=== PATIENT | female | born 1950 | race Caucasian/White ===

== ENCOUNTER → 2017-09-23 | Outpatient (REF) | payer MEDICARE ==
[2017-09-23 17:45] LABS: FERRITIN 8 NG/ML (8-252); PERCENT SATURATION 22.4 % (13.2-45.0); TOTAL IRON BINDING CAPACITY 370 UG/DL (250-450)
[2017-09-23 17:47] LABS: VITAMIN B12 LEVEL 624 PG/ML
[2017-09-23 17:48] LABS: FOLATE > 24.0 NG/ML
== END ==
LOC: M LAB REF 16:50
PROVIDERS: ATTEND Internal Medicine
DX: D64.9 Anemia, unspecified (principal)

== ENCOUNTER → 2017-10-31 | Outpatient (REF) | payer MEDICARE ==
[2017-10-31 21:54] LABS: FERRITIN 5 NG/ML (8-252); IRON (FE) 34 UG/DL (50-170); PERCENT SATURATION 8.4 % (13.2-45.0); TOTAL IRON BINDING CAPACITY 405 UG/DL (250-450)
== END ==
LOC: M LAB REF 17:58
DX: D50.9 Iron deficiency anemia, unspecified (principal)
CPT/HCPCS: 83550

== ENCOUNTER 2018-02-13 06:56 | Day surgery (SDC) | payer MEDICARE ==
[2018-02-13] MEDS: NS 1,000 ML IV (07:00)
[2018-02-13] MEDS ORDERED: LIDOCAINE 2% INJ 100 MG/5 ML SDV (FOR ANES.) As Ordered (07:51)
[2018-02-13] MEDS ORDERED: PROPOFOL 200 MG/20 ML VIAL As Ordered ×3 (07:51→08:20)
== END 2018-02-13 09:05 | disposition home or self-care (01) ==
LOC: M OPP 06:56
DX: K64.0 First degree hemorrhoids (principal); K22.8 Other specified diseases of esophagus; D50.9 Iron deficiency anemia, unspecified; M12.9 Arthropathy, unspecified; E55.9 Vitamin D deficiency, unspecified; Z79.899 Other long term (current) drug therapy; Z90.710 Acquired absence of both cervix and uterus; Z78.0 Asymptomatic menopausal state; Z98.51 Tubal ligation status
CPT/HCPCS: 45378

== ENCOUNTER → 2021-07-31 | Outpatient (CLI) | payer MEDICARE ==
[~2021-07-31] MED LIST: IRON50TA PO; PANT20TA6 PO
--- NOTE | 2021-07-31 08:54 | REPMRS ---
Patient History The patient states she had a clinical breast exam in November 2020. Patient is postmenopausal. No known family history of cancer. Took estrogen for 1 year. Pfizer vaccine 10/29/20 left arm. 11/19/20 left arm. Patient states no breast complaints today. Patient has signed MRS History Sheet. Digital Woman Screen Mammo: July 31, 2021 - Exam #: [id number] Bilateral CC and MLO view(s) were taken. Technologist: RT Rigoberto Prior study comparison: July 04, 2020, bilateral digital mammo screening bilat, performed at [facility]. June 06, 2019, bilateral digital mammo screening bilat, performed at [facility]. June 01, 2018, bilateral digital mammo screening bilat, performed at [facility]. FINDINGS: There are scattered fibroglandular densities. The Volpara volumetric breast density category is:B. There has been no change in the appearance of the mammogram from the prior studies. There is a mild amount of scattered fibroglandular density which is fairly symmetric. There is no interval development of dominant mass, architectural distortion, or grouped microcalcification suggestive of malignancy. 3-D tomosynthesis shows no additional findings. Assessment: BI-RADS/ACR category 1 mammogram. Negative Mammogram. Recommendation Routine screening mammogram of both breasts in 1 year (for women over age 40). This patient's [facility] Lifetime Breast Cancer Risk is estimated at 3.1 %. This mammogram was interpreted with the aid of an FDA-approved computer-aided dectection system. Electronically Signed By: Thanh Mathew MD 07/31/21 [id number]
== END ==
LOC: M WHC 07:47
PROVIDERS: ATTEND Internal Medicine
DX: Z12.31 Encounter for screening mammogram for malignant neoplasm of breast (principal)

== ENCOUNTER → 2021-10-09 | Outpatient (CLI) | payer MEDICARE | LOC: M RAD 10:06 | PROVIDERS: ATTEND Physician Assistant | DX: M25.561 Pain in right knee (principal); M17.11 Unilateral primary osteoarthritis, right knee; M85.861 Other specified disorders of bone density and structure, right lower leg ==

== ENCOUNTER → 2021-12-25 | Outpatient (CLI) | payer MEDICARE | LOC: M WHC 08:39 | PROVIDERS: ATTEND Internal Medicine | DX: M85.851 Other specified disorders of bone density and structure, right thigh (principal); M85.852 Other specified disorders of bone density and structure, left thigh ==

== ENCOUNTER → 2022-07-28 | Outpatient (CLI) | payer MEDICARE | LOC: M WHC 09:23 | PROVIDERS: ATTEND Internal Medicine | DX: Z12.31 Encounter for screening mammogram for malignant neoplasm of breast (principal) ==

== ENCOUNTER → 2022-12-14 | Outpatient (REF) | payer MEDICARE ==
[2022-12-14 12:55] LABS: APPEARANCE, URINE HAZY (CLEAR); BACTERIA, URINE AUTO 1+ (NEGATIVE); BILIRUBIN, URINE AUTO NEGATIVE (NEGATIVE); BLOOD, URINE BLOOD NEGATIVE (NEGATIVE); COLOR, URINE YELLOW (YELLOW); GLUCOSE, URINE (UA) AUTO NEGATIVE (NEGATIVE); KETONE, URINE AUTO TRACE mg/dL (NEGATIVE); LEUKOCYTE ESTERASE, URINE AUTO 2+ (NEGATIVE); MUCUS, URINE SMALL (NEGATIVE); NITRITE, URINE AUTO NEGATIVE (NEGATIVE); PROTEIN, URINE AUTO NEGATIVE (NEGATIVE); RBC, URINE AUTO 0 /HPF (0-3); SPECIFIC GRAVITY URINE AUTO 1.017 (1.002-1.035); SQUAMOUS EPITHELIAL CELL UR AU 3 /HPF (0-6); UROBILINOGEN, URINE AUTO 0.2 mg/dL (0.0-2.0); WBC, URINE AUTO 30 /HPF (0-3)
== END ==
LOC: M LAB REF 12:36
PROVIDERS: ATTEND Internal Medicine
DX: R31.9 Hematuria, unspecified (principal)

== ENCOUNTER → 2023-08-05 | Outpatient (CLI) | payer MEDICARE | LOC: M WHC 08:11 | PROVIDERS: ATTEND Internal Medicine | DX: Z12.31 Encounter for screening mammogram for malignant neoplasm of breast (principal) ==

== ENCOUNTER → 2023-11-30 | Day surgery (SDC) | payer MEDICARE ==
[~2023-11-30] VITALS: Ht 162.6 cm; Wt 92.0 kg
[~2023-11-30] MED LIST changes: +CALC600T61 PO; +MIDAZOLAM INJ 2MG/2ML VIAL As Ordered ONE; +NOXI1TAB PO; +PHENYLEPHRINE 10% OPHTH SOL 5ML OD PRN; +THERTAB52 PO; +fentaNYL 100 MCG/2 ML INJECTION As Ordered ONE
[2023-11-30] MEDS: TROPICAMIDE 1% OPHTH SOLN 15ML OD SCH (08:34)
[2023-11-30] MEDS: PHENYLEPHRINE 2.5% OPHTH SOL 2ML OD SCH (08:34)
[2023-11-30] MEDS: LIDOCAINE 3.5 % 1ML OPHTH TOPICAL GEL OU ONE (08:34)
[2023-11-30] MEDS: OFLOXACIN 0.3 % (OCUFLOX) OPTH SOL 5ML OD ONE (08:34)
[2023-11-30] MEDS: CYCLOPENTOLATE 1% OPHTH SOLN 2ML BTL OD SCH (08:34)
[2023-11-30] MEDS: LIDOCAINE 1% SDV 5ML VIAL As Ordered ONE (08:53)
[2023-11-30] MEDS: BSS IRRIG/VANCO(10MG)/TOBRA(5MG)/EPINEPH(1:1000-0.5CC)500ML BAG-ORONLY As Ordered ONE (08:53)
[2023-11-30] MEDS: CEFUROXIME 1MG/0.1ML INTRACAMERAL INJ As Ordered ONE (08:53)
[2023-11-30] MEDS: DUOVISC (0.50ML VISCOAT/0.85ML PROVISC) OPHTH KIT As Ordered ONE (09:11)
[2023-11-30 09:15] VITALS: BP 110/51; TEMP 97.4; O2SAT 98
== END | disposition home or self-care (01) ==
LOC: M SDC 07:36
PROVIDERS: ATTEND Ophthalmology
DX: H25.11 Age-related nuclear cataract, right eye (principal); Z79.899 Other long term (current) drug therapy
CPT/HCPCS: 66984; 92015; J0697; J2250; J3010; V2788

== ENCOUNTER 2023-12-07 07:31 | Day surgery (SDC) | payer MEDICARE ==
[~2023-12-07] VITALS: Ht 162.6 cm; Wt 92.1 kg
[~2023-12-07 07:31] MED LIST changes: -MIDAZOLAM INJ 2MG/2ML VIAL As Ordered ONE; -PHENYLEPHRINE 10% OPHTH SOL 5ML OD PRN; +PHENYLEPHRINE 10% OPHTH SOL 5ML OS PRN; -fentaNYL 100 MCG/2 ML INJECTION As Ordered ONE
[2023-12-07] MEDS ORDERED: MIDAZOLAM 5MG/ML 1ML VIAL As Ordered ONE (07:34)
[2023-12-07] MEDS: OFLOXACIN 0.3 % (OCUFLOX) OPTH SOL 5ML OS ONE (07:59)
[2023-12-07] MEDS: CYCLOPENTOLATE 1% OPHTH SOLN 2ML BTL OS SCH (07:59)
[2023-12-07] MEDS: TROPICAMIDE 1% OPHTH SOLN 15ML OS SCH (07:59)
[2023-12-07] MEDS: PHENYLEPHRINE 2.5% OPHTH SOL 2ML OS SCH (07:59)
[2023-12-07] MEDS: LIDOCAINE 3.5 % 1ML OPHTH TOPICAL GEL OU ONE (07:59)
[2023-12-07] MEDS: BSS IRRIG/VANCO(10MG)/TOBRA(5MG)/EPINEPH(1:1000-0.5CC)500ML BAG-ORONLY As Ordered ONE (09:07)
[2023-12-07] MEDS: LIDOCAINE 1% SDV 5ML VIAL As Ordered ONE (09:07)
[2023-12-07] MEDS: CEFUROXIME 1MG/0.1ML INTRACAMERAL INJ As Ordered ONE (09:08)
[2023-12-07 09:25] VITALS: BP 146/77; TEMP 97.2; O2SAT 96
== END 2023-12-07 09:35 | disposition home or self-care (01) ==
LOC: M SDC 07:31
PROVIDERS: ATTEND Ophthalmology
DX: H25.12 Age-related nuclear cataract, left eye (principal); Z79.899 Other long term (current) drug therapy; M13.80 Other specified arthritis, unspecified site
CPT/HCPCS: 66984; 92015; J0697; J2250; V2788

== ENCOUNTER → 2024-01-18 | Outpatient (CLI) | payer MEDICARE ==
[~2024-01-18] MED LIST changes: -PHENYLEPHRINE 10% OPHTH SOL 5ML OS PRN
== END ==
LOC: M WHC 08:48
PROVIDERS: ATTEND Internal Medicine
DX: M85.89 Other specified disorders of bone density and structure, multiple sites (principal)

== ENCOUNTER 2024-04-17 18:36 | Emergency (ER) | payer MEDICARE ==
[~2024-04-17] VITALS: Ht 162.6 cm; Wt 94.0 kg
[2024-04-17 18:36] VITALS: BP 166/85; TEMP 98.5; O2SAT 98
[2024-04-17] MEDS ORDERED: MELO7.5T35 (18:44)
== END 2024-04-17 23:00 | disposition home or self-care (01) ==
LOC: M ED 18:36
DX: S02.2XXA Fracture of nasal bones, initial encounter for closed fracture (principal); M85.80 Other specified disorders of bone density and structure, unspecified site; M47.892 Other spondylosis, cervical region; W01.198A Fall on same level from slipping, tripping and stumbling with subsequent striking against other object, initial encounter; Y92.009 Unspecified place in unspecified non-institutional (private) residence as the place of occurrence of the external cause; Y93.9 Activity, unspecified; Y99.9 Unspecified external cause status; Z79.899 Other long term (current) drug therapy

== ENCOUNTER → 2024-08-10 | Outpatient (CLI) | payer MEDICARE ==
[~2024-08-10] MED LIST changes: +MELO7.5T35
== END ==
LOC: M WHC 08:06
PROVIDERS: ATTEND Internal Medicine
DX: Z12.31 Encounter for screening mammogram for malignant neoplasm of breast (principal); R92.323 Mammographic fibroglandular density, bilateral breasts

== ENCOUNTER → 2025-01-08 | Outpatient (REF) | payer MEDICARE ==
[2025-01-08 13:04] LABS: APPEARANCE, URINE TURBID (CLEAR); BACTERIA, URINE AUTO 1+ (NEGATIVE); BILIRUBIN, URINE AUTO NEGATIVE (NEGATIVE); BLOOD, URINE BLOOD NEGATIVE (NEGATIVE); COLOR, URINE AMBER (YELLOW); GLUCOSE, URINE (UA) AUTO NEGATIVE (NEGATIVE); KETONE, URINE AUTO NEGATIVE (NEGATIVE); LEUKOCYTE ESTERASE, URINE AUTO 3+ (NEGATIVE); MUCUS, URINE SMALL (NEGATIVE); NITRITE, URINE AUTO NEGATIVE (NEGATIVE); PROTEIN, URINE AUTO NEGATIVE (NEGATIVE); RBC, URINE AUTO 0 /HPF (0-3); SPECIFIC GRAVITY URINE AUTO 1.023 (1.002-1.035); SQUAMOUS EPITHELIAL CELL UR AU 2 /HPF (0-6); UROBILINOGEN, URINE AUTO 0.2 mg/dL (0.0-2.0); WBC, URINE AUTO 48 /HPF (0-3)
== END ==
LOC: M LAB REF 12:05
PROVIDERS: ATTEND Internal Medicine
DX: R31.9 Hematuria, unspecified (principal)

== ENCOUNTER → 2025-06-18 | Outpatient (CLI) | payer MEDICARE | LOC: M WUC 11:19 | PROVIDERS: ATTEND Internal Medicine | DX: M25.552 Pain in left hip (principal) ==

== ENCOUNTER → 2025-08-12 | Outpatient (CLI) | payer MEDICARE | LOC: M WHC 08:17 | PROVIDERS: ATTEND Internal Medicine | DX: Z12.31 Encounter for screening mammogram for malignant neoplasm of breast (principal); R92.323 Mammographic fibroglandular density, bilateral breasts ==